=== PATIENT | female | born 1955 | race Two or more races ===

== ENCOUNTER 2021-05-14 10:30 | Inpatient (IN) | payer OTHER ==
[~2021-05-14] VITALS: Ht 162.6 cm; Wt 79.8 kg
[2021-05-14] MEDS ORDERED: SYNTHROID50 MCG PO (15:37)
[2021-05-14] MEDS ORDERED: CLONAZEPAM0.5 MG PO (15:38)
[2021-05-19] MEDS ORDERED: MIRTAZAPINE15 MG (08:36)
[2021-05-19] MEDS ORDERED: AMITRIPTYLINE H10 MG (08:37)
[2021-06-14] MEDS ORDERED: ULTRAM50 MG PO (14:56)
[2021-06-14] MEDS ORDERED: METRONIDAZOLE500 MG PO (14:56)
[2021-06-14] MEDS ORDERED: HIBICLENS118 ML TOP (14:56)
[2021-06-14] MEDS ORDERED: CIPRO500 MG PO (14:56)
[2021-06-14] MEDS ORDERED: INTESTINEX680 M1 PO (14:56)
[2021-06-14] MEDS ORDERED: QUESTRAN POWDE378 GM PO (14:57)
== END 2021-06-14 15:47 | disposition home or self-care (01) | DRG 330 ==
LOC: O/R 05-19 06:08 → SURH 05-19 06:08
PROVIDERS: ADMIT Surgery; ATTEND Surgery
PROC: 0DBP4ZZ Excision of Rectum, Percutaneous Endoscopic Approach (ICD-10-PCS; 2021-05-19)
PROC: 0DB84ZZ Excision of Small Intestine, Percutaneous Endoscopic Approach (ICD-10-PCS; 2021-05-19)
PROC: 0DN84ZZ Release Small Intestine, Percutaneous Endoscopic Approach (ICD-10-PCS; 2021-05-19)
PROC: 0DTN4ZZ Resection of Sigmoid Colon, Percutaneous Endoscopic Approach (ICD-10-PCS; principal; 2021-05-19 07:00)
PROC: 0D9670Z Drainage of Stomach with Drainage Device, Via Natural or Artificial Opening (ICD-10-PCS; 2021-05-22)
PROC: 02HV33Z Insertion of Infusion Device into Superior Vena Cava, Percutaneous Approach (ICD-10-PCS; 2021-05-22)
PROC: 3E0436Z Introduction of Nutritional Substance into Central Vein, Percutaneous Approach (ICD-10-PCS; 2021-05-27)
PROC: 0DB80ZZ Excision of Small Intestine, Open Approach (ICD-10-PCS; 2021-06-02)
PROC: 0DN80ZZ Release Small Intestine, Open Approach (ICD-10-PCS; 2021-06-02)
DX: K57.32 Diverticulitis of large intestine without perforation or abscess without bleeding (principal); K91.31 Postprocedural partial intestinal obstruction; K91.89 Other postprocedural complications and disorders of digestive system; K55.1 Chronic vascular disorders of intestine; N99.4 Postprocedural pelvic peritoneal adhesions; N73.6 Female pelvic peritoneal adhesions (postinfective); K63.5 Polyp of colon; E66.09 Other obesity due to excess calories; Z68.30 Body mass index [BMI] 30.0-30.9, adult; K59.09 Other constipation; E03.8 Other specified hypothyroidism; F17.200 Nicotine dependence, unspecified, uncomplicated; Z20.822 Contact with and (suspected) exposure to COVID-19

== ENCOUNTER 2021-10-15 14:07 | Emergency (ER) | payer OTHER ==
[~2021-10-15] VITALS: Ht 167.6 cm; Wt 74.4 kg
[~2021-10-15 14:07] MED LIST: AMITRIPTYLINE H10 MG; CIPRO500 MG PO; CLONAZEPAM0.5 MG PO; HIBICLENS118 ML TOP; INTESTINEX680 M1 PO; METRONIDAZOLE500 MG PO; MIRTAZAPINE15 MG; QUESTRAN POWDE378 GM PO; SYNTHROID50 MCG PO; ULTRAM50 MG PO
[2021-10-15] MEDS ORDERED: CLONAZEPAM0.5 MG PO (14:36)
== END 2021-10-15 22:51 | disposition home or self-care (01) ==
LOC: ER 14:07
DX: R10.84 Generalized abdominal pain (principal); E03.9 Hypothyroidism, unspecified; I10 Essential (primary) hypertension